=== PATIENT | male | born 1970 | race Caucasian/White ===

== ENCOUNTER → 2021-01-03 | Outpatient (CLI) | payer MEDICARE, OTHER ==
[~2021-01-03] MED LIST: CATAPRES 0.1MG0.1 MG PO; ELIMITE 5% CREA60 GM TOP; HYDRALAZINE HC100 MG PO; HYDROCODON-ACE1 EAC4 PO; LEVOFLOXACIN500 MG PO; LIPITOR TAB 2020 MG PO; NORVASC10 MG PO; PHOSLO 667 MG667 MG PO; RENVELA800 MG PO; ROCALTROL0.25 MCG PO; SODIUM BICARBO650 MG PO; TOPROL XL200 MG PO; ZYVOX600 MG PO; [UNRECOGNIZED DRUG - REMARK] PO
== END ==
LOC: KOH-I 15:29
DX: S99.911A Unspecified injury of right ankle, initial encounter (principal); S99.912A Unspecified injury of left ankle, initial encounter; S90.552A Superficial foreign body, left ankle, initial encounter; X58.XXXA Exposure to other specified factors, initial encounter
CPT/HCPCS: 73610; 73630

== ENCOUNTER 2021-05-04 18:19 | Inpatient (IN) | payer MEDICARE, OTHER ==
[~2021-05-04] VITALS: Ht 185.4 cm; Wt 93.2 kg
[~2021-05-04 18:19] MED LIST changes: -HYDRALAZINE HC100 MG PO; -HYDROCODON-ACE1 EAC4 PO; -LEVOFLOXACIN500 MG PO; -RENVELA800 MG PO; -ZYVOX600 MG PO
[2021-05-04] MEDS ORDERED: HYDROCODON-ACE1 EAC4 PO (23:51)
[2021-05-04] MEDS ORDERED: HYDRALAZINE HC100 MG PO (23:52)
[2021-05-04] MEDS ORDERED: RENVELA800 MG PO (23:53)
[2021-05-05 03:17] LABS: HEMOGLOBIN 10.9 gm/dl (14.0-17.5); RED BLOOD COUNT 3.88 M/UL (4.20-5.50); WHITE BLOOD COUNT 8.3 K/UL (4.5-11.0)
[2021-05-07 02:48] LABS: HEMOGLOBIN 11.1 gm/dl (14.0-17.5); RED BLOOD COUNT 3.95 M/UL (4.20-5.50); WHITE BLOOD COUNT 8.2 K/UL (4.5-11.0)
[2021-05-07 09:16] LABS: HBSAG SCREEN Positive (Negative); HEP A AB, IGM Negative (Negative); HEP B CORE AB, IGM Negative (Negative)
[2021-05-07] MEDS ORDERED: ZYVOX600 MG PO (12:54)
[2021-05-07] MEDS ORDERED: LEVOFLOXACIN500 MG PO (12:54)
== END 2021-05-07 14:31 | disposition home or self-care (01) | DRG 919 ==
LOC: MED SURG 4 22:00
PROVIDERS: Internal Medicine; ADMIT Internal Medicine
PROC: 5A1D70Z Performance of Urinary Filtration, Intermittent, Less than 6 Hours Per Day (ICD-10-PCS; principal; 2021-05-04)
DX: T85.611A Breakdown (mechanical) of intraperitoneal dialysis catheter, initial encounter (principal); N18.6 End stage renal disease; I12.0 Hypertensive chronic kidney disease with stage 5 chronic kidney disease or end stage renal disease; E44.0 Moderate protein-calorie malnutrition; E11.52 Type 2 diabetes mellitus with diabetic peripheral angiopathy with gangrene; I96 Gangrene, not elsewhere classified; R10.9 Unspecified abdominal pain; Y83.8 Other surgical procedures as the cause of abnormal reaction of the patient, or of later complication, without mention of misadventure at the time of the procedure; E11.9 Type 2 diabetes mellitus without complications; K74.60 Unspecified cirrhosis of liver; I45.10 Unspecified right bundle-branch block; F17.200 Nicotine dependence, unspecified, uncomplicated; E11.621 Type 2 diabetes mellitus with foot ulcer; L97.529 Non-pressure chronic ulcer of other part of left foot with unspecified severity; I11.9 Hypertensive heart disease without heart failure; L03.032 Cellulitis of left toe; E21.3 Hyperparathyroidism, unspecified; K52.9 Noninfective gastroenteritis and colitis, unspecified; Z20.822 Contact with and (suspected) exposure to COVID-19; D64.89 Other specified anemias; J44.9 Chronic obstructive pulmonary disease, unspecified; K59.00 Constipation, unspecified; Y92.89 Other specified places as the place of occurrence of the external cause; Z79.4 Long term (current) use of insulin; Z91.14 Patient's other noncompliance with medication regimen; Z68.23 Body mass index [BMI] 23.0-23.9, adult
CPT/HCPCS: 36415; 73620; 80048; 80053; 80074; 80202; 82550; 82553; 82962; 83036; 83735; 84100; 84439; 84443; 84484; 85025; 85027; 85652; 86140; 87040; 87070; 87077; 87186; 87205; 90945; 90947; 93005; 93922; J0692; J1644; J1650; J3370; J7070; U0002

== ENCOUNTER 2021-05-25 18:08 | Emergency (ER) | payer MEDICARE, OTHER ==
[~2021-05-25 18:08] MED LIST changes: +HYDRALAZINE HC100 MG PO; +HYDROCODON-ACE1 EAC4 PO; +LEVOFLOXACIN500 MG PO; +RENVELA800 MG PO; +ZYVOX600 MG PO
[2021-05-25 19:57] LABS: HEMOGLOBIN 11.7 gm/dl (14.0-17.5); RED BLOOD COUNT 4.14 M/UL (4.20-5.50); WHITE BLOOD COUNT 6.7 K/UL (4.5-11.0)
== END 2021-05-25 22:56 | disposition home or self-care (01) ==
LOC: ER1 18:08
PROVIDERS: Student in an Organized Health Care Education/Training Program
DX: R60.0 Localized edema (principal); J44.9 Chronic obstructive pulmonary disease, unspecified; I12.9 Hypertensive chronic kidney disease with stage 1 through stage 4 chronic kidney disease, or unspecified chronic kidney disease; N18.9 Chronic kidney disease, unspecified; Z99.2 Dependence on renal dialysis; F17.210 Nicotine dependence, cigarettes, uncomplicated; Z79.899 Other long term (current) drug therapy; Z20.822 Contact with and (suspected) exposure to COVID-19
CPT/HCPCS: 0240U; 71045; 80053; 82550; 82553; 83605; 83690; 83735; 83874; 83880; 84100; 84439; 84443; 84484; 85025; 85652; 86140; 93005; 96374; 99284; J2270